=== PATIENT | female | born 1990 | race Hispanic/Latino ===

== ENCOUNTER 2017-06-12 03:16 | Outpatient (CLI) | payer OTHER ==
[~2017-06-12] VITALS: Ht 162.6 cm; Wt 64.4 kg
[2017-06-12 03:42] VITALS: BP 104/51
[2017-06-12] MEDS ORDERED: PRENATAL TABLE1 EAC3 PO (03:50)
[2017-06-12] MEDS ORDERED: IRON325 M1 PO (03:51)
[2017-06-12 04:53] VITALS: BP 109/53
== END 2017-06-12 05:55 | disposition home or self-care (01) ==
LOC: LDRP-OP 03:16 → 2WEST 03:17
DX: O26.893 Other specified pregnancy related conditions, third trimester (principal); R10.9 Unspecified abdominal pain; O99.013 Anemia complicating pregnancy, third trimester; Z3A.35 35 weeks gestation of pregnancy
CPT/HCPCS: 59025; G0378

== ENCOUNTER 2017-06-17 11:10 | Emergency (ER) | payer OTHER ==
[~2017-06-17] VITALS: Ht 162.6 cm; Wt 66.9 kg
[~2017-06-17 11:10] MED LIST: IRON325 M1 PO; PRENATAL TABLE1 EAC3 PO
[2017-06-17 12:14] LABS: HEMATOCRIT 25.4 % (36.0-46.0); MCHC 32.3 G/DL (30.0-36.0); MCV 89.8 FL (83-99); PLATELET COUNT 336 K/uL (156-360); RBC DIS.WIDTH-CV 12.6 % (11.8-14.6); RBC DIS.WIDTH-SD 41.3 % (39-53); RED BLOOD COUNT 2.83 M/uL (3.80-5.20); WHITE BLOOD COUNT 11.2 K/uL (4.1-10.2)
[2017-06-17 12:28] LABS: CHLORIDE 105 mEq/L (99-109); SODIUM 137 mEq/L (136-147)
[2017-06-17 12:30] LABS: GLUCOSE 87 mg/dL (70-99)
[2017-06-17 12:32] LABS: ANION GAP 10 MEQ/L (2-14)
[2017-06-17 12:34] LABS: GFR ESTIMATE (CALCULATED) > 59 mL/min/
[2017-06-17 12:35] LABS: UREA NITROGEN (BUN) 9 mg/dL (9-23)
[2017-06-17 12:36] LABS: TROP-I INTERPRETATION NEGATIVE; TROPONIN-I < 0.01 ng/mL (0.0-0.30)
[2017-06-17 13:37] VITALS: BP 96/59
== END 2017-06-17 13:39 | disposition home or self-care (01) ==
LOC: EME 11:10
DX: O26.893 Other specified pregnancy related conditions, third trimester (principal); R00.0 Tachycardia, unspecified; Z98.890 Other specified postprocedural states; O99.013 Anemia complicating pregnancy, third trimester; D64.9 Anemia, unspecified; Z3A.35 35 weeks gestation of pregnancy
CPT/HCPCS: 80048; 84484; 85027; 93005; 99281; 99283

== ENCOUNTER 2017-07-19 10:02 | Inpatient (IN) | payer OTHER ==
[2017-07-19] VITALS (16 sets, daily range): BP systolic 101–122; BP diastolic 51–70
[~2017-07-19] VITALS: Ht 162.6 cm; Wt 67.0 kg
[2017-07-19 13:07] LABS: EOSINOPHIL (%) 0.1 % (0-5); HEMATOCRIT 28.7 % (36.0-46.0); IMMATURE GRANULOCYTE (%) 0.5 % (0.0-0.7); INSTRUMENT ABS NEUTROPHIL CT 6.2 K/uL; LYMPHOCYTE COUNT 1.5 K/uL (1.0-2.8); MCH 30.9 PG (29.0-34.0); MCHC 32.8 G/DL (30.0-36.0); MCV 94.4 FL (83-99); MEAN PLAT.VOLUME 9.5 uM^3 (9.5-12.4); MONOCYTE COUNT 0.4 K/uL (0-0.8); NEUTROPHIL (%) 75.6 % (45-76); NEUTROPHIL COUNT 6.2 K/uL (1.8-6.4); PLATELET COUNT 288 K/uL (156-360); RBC DIS.WIDTH-CV 19.8 % (11.8-14.6); RBC DIS.WIDTH-SD 66.9 % (39-53); RED BLOOD COUNT 3.04 M/uL (3.80-5.20); WHITE BLOOD COUNT 8.2 K/uL (4.1-10.2)
[2017-07-20] VITALS (18 sets, daily range): BP systolic 101–127; BP diastolic 55–69
[2017-07-21] VITALS (11 sets, daily range): BP systolic 84–116; BP diastolic 48–74
[2017-07-21] MEDS ORDERED: IBUPROFEN800 MG PO (01:10)
[2017-07-22 07:05] LABS: HEMATOCRIT 27.1 % (36.0-46.0); MCH 30.4 PG (29.0-34.0); MCHC 31.7 G/DL (30.0-36.0); MCV 95.8 FL (83-99); MEAN PLAT.VOLUME 9.5 uM^3 (9.5-12.4); PLATELET COUNT 242 K/uL (156-360); RBC DIS.WIDTH-CV 20.1 % (11.8-14.6); RBC DIS.WIDTH-SD 68.4 % (39-53); RED BLOOD COUNT 2.83 M/uL (3.80-5.20); WHITE BLOOD COUNT 9.6 K/uL (4.1-10.2)
[2017-07-22 07:07] LABS: EOSINOPHIL (%) 0.2 % (0-5); IMMATURE GRANULOCYTE (%) 0.5 % (0.0-0.7); IMMATURE GRANULOCYTE COUNT 0.1 K/uL; INSTRUMENT ABS NEUTROPHIL CT 5.8 K/uL; LYMPHOCYTE COUNT 3.1 K/uL (1.0-2.8); MONOCYTE (%) 6.5 % (3-12); MONOCYTE COUNT 0.6 K/uL (0-0.8); NEUTROPHIL (%) 60.2 % (45-76); NEUTROPHIL COUNT 5.8 K/uL (1.8-6.4)
[2017-07-22 07:20] VITALS: BP 117/58
== END 2017-07-22 13:32 | disposition home or self-care (01) | DRG 775 ==
LOC: LDRP-OP → 2WEST → LDRP-OP 10:02 → 2WEST 10:03 → LDRP-OP 08-10 16:01
PROVIDERS: Nurse Practitioner; Obstetrics & Gynecology
DX: O99.02 Anemia complicating childbirth (principal); O41.03X0 Oligohydramnios, third trimester, not applicable or unspecified; O36.8130 Decreased fetal movements, third trimester, not applicable or unspecified; D50.9 Iron deficiency anemia, unspecified; Z37.0 Single live birth; Z3A.40 40 weeks gestation of pregnancy; O69.81X0 Labor and delivery complicated by cord around neck, without compression, not applicable or unspecified
CPT/HCPCS: 85025; G0378; J0595; J7120; Q0169

== ENCOUNTER 2018-06-24 13:02 | Emergency (ER) | payer OTHER ==
[~2018-06-24] VITALS: Ht 162.6 cm; Wt 54.7 kg
[~2018-06-24 13:02] MED LIST changes: +IBUPROFEN800 MG PO
[2018-06-24] MEDS ORDERED: FIORICET 50-301 EAC1 PO (18:00)
[2018-06-24 18:50] VITALS: BP 114/70
== END 2018-06-24 18:51 | disposition home or self-care (01) ==
LOC: EME 13:02
DX: R51 Headache (principal); R09.81 Nasal congestion; R11.2 Nausea with vomiting, unspecified; H53.8 Other visual disturbances; R05 Cough
CPT/HCPCS: 70450; 99281; 99284; J1885